=== PATIENT | female | born 2000 | race Caucasian/White ===

== ENCOUNTER 2023-03-27 18:43 | Emergency (ER) | payer OTHER ==
[~2023-03-27] VITALS: Ht 162 cm; Wt 81.0 kg
[2023-03-27 18:50] VITALS: BP 142/78
--- NOTE | 2023-03-27 19:04 | ED Upper Extremity ---
General Stated Complaint: INJ LEFT PINKY FINGER Source: patient Exam Limitations: no limitations (DILIP CADENA) History of Present Illness Date Seen by Provider: Mar 27, 2023 Time Seen by Provider: 18:57 Initial Comments Patient is a 22-year-old female presents ED with little finger pain. Patient states 30 minutes ago she was playing rugby. She states her finger got caught in someone's jersey. She reports pain distally. Nail intact. She is able to flex and extend. Notable bruising and swelling. No history of previous fracture. Denies taking anything for pain. Patient denies distal numbness and tingling. (DILIP CADENA) Allergies and Home Medications Patient Home Medication List Home Medication List Reviewed: Yes (DILIP CADENA) Review of Systems Constitutional: No chills, No diaphoresis EENTM: No ear pain, No blurred vision, No double vision Respiratory: No cough, No dyspnea on exertion Cardiovascular: No chest pain Gastrointestinal: No abdominal pain, No diarrhea, No nausea, No vomiting Genitourinary: No decreased output, No discharge Musculoskeletal: No back pain; joint pain, joint swelling Skin: change in color (DILIP CADENA) All Other Systems Reviewed Negative Unless Noted: Yes (DILIP CADENA) Physical Exam Vital Signs Vital Signs - First Documented 03/27/23 18:50 Temp 36.5 Pulse 100 Resp 16 B/P (MAP) 142/78 (99) Pulse Ox 99 O2 Delivery Room Air (YAZMIN,JUAN K DO) Vital Signs Capillary Refill : (DILIP CADENA) Height, Weight, BMI Height: '" Weight: lbs. oz. kg; BMI Method: General Appearance: WD/WN, no apparent distress HEENT: PERRL/EOMI, normal ENT inspection, TMs normal, pharynx normal Neck: non-tender, full range of motion Cardiovascular: regular rate, rhythm, no edema, no gallop, no JVD Respiratory: chest non-tender, lungs clear, normal breath sounds, no respiratory distress, no accessory muscle use Gastrointestinal: normal bowel sounds, non tender, soft, no organomegaly Back: normal inspection, no CVA tenderness Shoulder: normal inspection, non-tender Elbow/Forearm: normal inspection, non-tender, Left Wrist: Yes normal inspection, Yes non-tender Hand: normal ROM, Left, bone tenderness (Mild tenderness proximal of the left dorsum little finger.), swelling (Swelling and bruising noted to the left little finger. 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 She does have bruising and swelling to the left little finger. Flexion extension at the DIP, PIP and MCP joint intact. No obvious bone deformity. Neurovascular intact. She does have tenderness near the distal phalanx DIP joint. Not able to rule out fracture. Recommended a x-ray. She refused. We discussed if there is a potential fracture typically these will heal without any surgery and usually immobilized with a splint and braden tape. If there is a angulated fracture sometimes these may require reduction and potential pin if need be. She does not want to proceed with x-ray. There is no strong evidence of dislocation as she has adequate range of motion. She refused anything for pain. Did provide a finger splint. At this time ice and braden tape with finger splint and orthopedic follow-up in 2 weeks. If any worsening symptoms recommend to return back to ED for an x-ray (DILIP CADENA) Impression Primary Impression: Finger pain Disposition: 01 HOME, SELF-CARE Condition: Stable Departure-Patient Inst. Decision time for Depature: 19:00 (DILIP CADENA) Referrals: NO,LOCAL PHYSICIAN (PCP) Primary Care Physician REMBERTO CHESTER MD Patient Instructions: Jacobo Finger Add. Discharge Instructions: Patient with a left little finger injury. Differential diagnosis finger sprain versus finger fracture. This occurred while playing rugby. She believes her left finger got tangled up in a short. She has bruising and swelling. On exam she has some mild tenderness distally proximal to the nailbed. DIP, PIP and MCP joint intact with normal range of motion. She does have some notable swelling and bruising. Discussed x-ray rule out occult fracture. She is not wanting an x-ray. We discussed if there is a fracture potentially these will heal with immobilization. If there is a displaced fracture and depending on location may require pin. She acknowledges. She does not want to proceed with an x-ray. At this time recommend a finger splint and braden tape and follow-up with orthopedic in 2 weeks. Recommend ice and anti-inflammatories. ATTENDING PHYSICIAN NOTE: I WAS PHYSICALLY PRESENT ER PHYSICIAN, BUT I WAS NOT INVOLVED IN ANY DECISION MAKING OR ANY CARE OF THIS PATIENT AND I AM NOT COLLABORATING PHYSICIAN. (JUAN ARCE DO) DILIP CADENA Mar 27, 2023 19:04 JUAN ARCE DO Mar 29, 2023 07:15
== END 2023-03-27 19:20 | disposition home or self-care (01) ==
LOC: ER 18:48
DX: S60.052A Contusion of left little finger without damage to nail, initial encounter (principal); W23.1XXA Caught, crushed, jammed, or pinched between stationary objects, initial encounter
CPT/HCPCS: 99283